=== PATIENT | female | born 1990 | race Caucasian/White ===

== ENCOUNTER 2016-09-07 23:24 | Emergency (ER) | payer OTHER ==
[2016-09-08] MEDS ORDERED: IBUPROFEN 600 MG TABLET PO STA (00:43)
[2016-09-08] MEDS ORDERED: PENICILLIN VK 250 MG TABLET PO STA (00:43)
[2016-09-08] MEDS ORDERED: HYDROcod/ACET 5/325 Prepack 6 PO STA (00:43)
[2016-09-08] MEDS ORDERED: AMOXICILLIN 250 MG CAPSULE PO STA (00:44)
[2016-09-08] MEDS ORDERED: HYDROcod/ACET 5/325 Prepack 6 PO ONE (00:54)
[2016-09-08] MEDS ORDERED: IBUPROFEN 600 MG TABLET PO ONE (00:54)
[2016-09-08] MEDS ORDERED: AZITHROMYCIN 250 MG TABLET PO ONE (00:54)
[2016-09-08] MEDS ORDERED: AMOXICILLIN 250 MG CAPSULE PO ONE (00:59)
== END 2016-09-08 01:32 | disposition home or self-care (01) ==
DX: J02.0 Streptococcal pharyngitis (principal)
CPT/HCPCS: 87430; 99283; A9270

== ENCOUNTER 2016-11-03 01:59 | Emergency (ER) | payer OTHER ==
[2016-11-03] MEDS ORDERED: METOCLOPRAMIDE 10 MG/2 ML VIAL IVP STA (02:10)
[2016-11-03] MEDS ORDERED: KETOROLAC 60 MG/2 ML VIAL IVP STA (02:10)
[2016-11-03] MEDS ORDERED: diphenhydrAMINE INJ 50 MG/ML VIAL IVP STA (02:10)
[2016-11-03] MEDS ORDERED: SODIUM CHLORIDE 0.9% 1,000 ML IV ONE (02:10)
[2016-11-03] MEDS ORDERED: METOCLOPRAMIDE 10 MG/2 ML VIAL IVP ONE (02:44)
[2016-11-03] MEDS ORDERED: diphenhydrAMINE INJ 50 MG/ML VIAL ONE (02:44)
[2016-11-03] MEDS ORDERED: KETOROLAC 30 MG/ML VIAL ONE (02:54)
[2016-11-03] MEDS ORDERED: MORPHINE 2 MG/ML SYRINGE IVP STA (03:11)
[2016-11-03] MEDS ORDERED: MORPHINE 2 MG/ML SYRINGE ONE (03:12)
== END 2016-11-03 04:19 | disposition home or self-care (01) ==
DX: R51 Headache (principal)

== ENCOUNTER 2017-02-04 06:53 | Day surgery (SDC) | payer OTHER ==
[~2017-02-04 06:53] MED LIST: ACETAMINOPHEN 1,000 MG/100 ML 100 ML IV ONE; GABAPENTIN 400 MG CAPSULE ONE; ceFAZolin 2 GM/50 ML 50 ML IV ONE
[2017-02-04] MEDS ORDERED: LACTATED RINGERS 1,000 ML IV ONE ×2 (07:03→10:11)
[2017-02-04 07:24] LABS: HCG UR QUAL NEGATIVE
[2017-02-04] MEDS ORDERED: fentaNYL 100 MCG/2 ML VIAL IVP ONE (09:13)
[2017-02-04] MEDS ORDERED: ONDANSETRON 4 MG/2 ML VIAL IVP ONE (09:13)
[2017-02-04] MEDS ORDERED: ROPIVACAINE 0.2% PF 20 ML AMPULE SUBQ ONE (09:13)
[2017-02-04] MEDS ORDERED: ROCURONIUM 50 MG/5 ML VIAL IVP ONE (09:13)
[2017-02-04] MEDS ORDERED: DEXAMETHASONE 4 MG/ML VIAL IVP ONE (09:13)
[2017-02-04] MEDS ORDERED: LIDOCAINE-MPF 2% 5 ML VIAL IM ONE (09:13)
[2017-02-04] MEDS ORDERED: PROPOFOL 200 MG/20 ML VIAL IVP ONE (09:13)
[2017-02-04] MEDS ORDERED: EPINEPHrine 1 MG/ML AMP IVP ONE ×2 (09:13→09:18)
[2017-02-04] MEDS ORDERED: MIDAZOLAM 2 MG/2 ML VIAL IVP ONE (09:13)
[2017-02-04] MEDS ORDERED: oxyCOD/ACETAMIN 5 MG/325 MG TABLET PO ONE (12:46)
[2017-02-04 14:26] VITALS: BP 118/77
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
== END 2017-02-04 06:54 | disposition home or self-care (01) ==
LOC: SDS 06:53
PROVIDERS: ATTEND Orthopaedic Surgery
PROC: 0MM14ZZ Reattachment of Right Shoulder Bursa and Ligament, Percutaneous Endoscopic Approach (ICD-10-PCS; principal; 2017-02-04 08:45)
PROC: 0RBJ4ZZ Excision of Right Shoulder Joint, Percutaneous Endoscopic Approach (ICD-10-PCS; 2017-02-04 08:45)
DX: S43.431A Superior glenoid labrum lesion of right shoulder, initial encounter (principal); M75.51 Bursitis of right shoulder; X50.0XXA Overexertion from strenuous movement or load, initial encounter; E66.9 Obesity, unspecified; Z68.32 Body mass index [BMI] 32.0-32.9, adult
CPT/HCPCS: 29807; 29822; 81025; A9270; C1713; J0131; J0690; J7120

== ENCOUNTER 2017-06-26 07:51 | Emergency (ER) | payer OTHER ==
[2017-06-26 08:14] LABS: BILIRUBIN,URINE NEGATIVE (NEGATIVE); GLUCOSE, URINE (UA) NEGATIVE (NEGATIVE); KETONES,URINE (UA) NEGATIVE (NEGATIVE); LEUKOCYTE ESTERASE, URINE TRACE (NEGATIVE); NITRITE,URINE NEGATIVE (NEGATIVE); OCCULT BLOOD,URINE NEGATIVE (NEGATIVE); PROTEIN,URINE NEGATIVE (NEGATIVE); UROBILINOGEN,URINE 0.2 (NORMAL) E.U./dL (NORMAL)
[2017-06-26 08:17] LABS: CLARITY,URINE CLEAR (CLEAR); HCG UR QUAL NEGATIVE
--- NOTE | 2017-06-26 08:23 | ED Physician Documentation ---
PD HPI ABD PAIN - Stated complaint Stated Complaint: ABD PX - Chief complaint Chief Complaint: Abd Pain - History obtained from History obtained from: Patient - History of Present Illness Timing - onset: How many months ago (2) Timing - duration: Months (2) Timing - details: Gradual onset, Still present, Waxing and waning Quality: Sharp, Pain Location: Suprapubic, LLQ Radiation: Left flank Improved by: Position Worsened by: Other (nothing) Associated symptoms: Nausea, Vomiting. No: Diarrhea, Constipation Similar symptoms before: Diagnosis (UTI) Recently seen: Clinic - Additional information Additional information: 26-year-old female is began to a developed some suprapubic pain worse on the left than the right and she has developed some pain into the left flank periodically as well. She has had symptoms for about 2 months and she has been into see her doctor and been diagnosed with urinary tract infection. She has been back to see the doctor and has been diagnosed two other times with urinary tract infections as well and she has been on 3 courses of antibiotic. Despite this she has continued to have symptoms and these are relatively unchanged. She describes a background pain that is continuous and sharp pain in the left lower quadrant radiating to the left flank that may last up to 45 minutes. The worst pain is a 7 the background pain as a 4. Review of Systems Constitutional: denies: Fever, Chills, Fatigue Eyes: denies: Decreased vision Ears: denies: Ear pain Nose: denies: Congestion Throat: denies: Sore throat Cardiac: denies: Chest pain / pressure, Palpitations Respiratory: denies: Dyspnea, Cough GI: reports: Abdominal Pain, Nausea, Vomiting. denies: Constipation, Diarrhea : denies: Dysuria, Frequency, Discharge Skin: denies: Rash Musculoskeletal: reports: Back pain. 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 - Present Medications Home Medications: Ambulatory Orders Medication Instructions Recorded Confirmed Gabapentin 1,200 mg PO DAILY 09/07/16 02/04/17 - Allergies Allergies/Adverse Reactions: Allergies Allergy/AdvReac Type Severity Reaction Status Date / Time primaquine Allergy Respiratory Verified 06/26/17 08:05 Sulfa (Sulfonamide Allergy Respiratory Verified 06/26/17 08:05 Antibiotics) adhesive tape AdvReac Unknown Verified 06/26/17 08:05 aspirin AdvReac Anxiety Verified 06/26/17 08:05 theragesic skin cream AdvReac Hives Uncoded 06/26/17 08:05 - Social History Does the pt smoke?: No Smoking Status: Never smoker Does the pt drink ETOH?: No Does the pt have substance abuse?: No - Immunizations Immunizations are current?: Yes - POLST Patient has POLST: No PD ED PE NORMAL - Vitals Vital signs reviewed: Yes (Hypertensive) - General General: Alert and oriented X 3, No acute distress, Well developed/nourished - HEENT HEENT: Atraumatic, PERRL, EOMI - Neck Neck: Supple, no meningeal sign - Cardiac Cardiac: RRR, No murmur - Respiratory Respiratory: No respiratory distress, Clear bilaterally - Abdomen Abdomen: Soft, Other (There is specific left lower quadrant tenderness to palpation without guarding or rebound tenderness there is no referred tenderness to the left lower quadrant there is no specific pain with bimanual palpation of the left kidney.) - Back Back: No CVA TTP, No spinal TTP - Derm Derm: Normal color, Warm and dry, No rash - Extremities Extremities: No deformity, No edema - Neuro Neuro: No motor deficit, No sensory deficit Eye Opening: Spontaneous Motor: Obeys Commands Verbal: Oriented GCS Score: 15 - Psych Psych: Normal mood, Normal affect Results - Vitals Vitals: Vital Signs - 24 hr 06/26/17 07:54 Temperature 36.7 C Heart Rate 76 Respiratory 18 Rate Blood Pressure 136/92 H O2 Saturation 99 Oxygen O2 Source Room air - Labs Labs: Laboratory Tests 06/26/17 06/26/17 06/26/17 07:56 08:48 08:48 WBC 7.1 RBC 4.59 Hgb 12.8 Hct 37.2 MCV 81.0 MCH 28.0 MCHC 34.5 RDW 13.5 Plt Count 180 MPV 8.4 Neut # 4.2 Lymph # 2.3 Bollinger # 0.6 Eos # 0.1 Baso # 0.0 Absolute Nucleated RBC 0.00 Nucleated RBC % 0.0 Sodium 141 Potassium 3.2 L Chloride 107 Carbon Dioxide 24 Anion Gap 10.0 BUN 11 Creatinine 1.0 Estimated GFR (MDRD) 68 L Glucose 92 Calcium 9.3 Total Bilirubin 0.5 AST 16 ALT 11 Alkaline Phosphatase 49 Total Protein 7.2 Albumin 4.3 Globulin 2.9 Albumin/Globulin Ratio 1.5 Lipase 24 Urine Color LT. YELLOW Urine Clarity CLEAR Urine pH 6.0 Ur Specific [place] <=1.005 Urine Protein NEGATIVE Urine Glucose (UA) NEGATIVE Urine Ketones NEGATIVE Urine Occult Blood NEGATIVE Urine Nitrite NEGATIVE Urine Bilirubin NEGATIVE Urine Urobilinogen 0.2 (NORMAL) Ur Leukocyte Esterase TRACE H Urine RBC 0-5 Urine WBC 4-5 Ur Squamous Epith Cells MOD Squamous H Urine Bacteria Moderate H Urine Trichomonas PRESENT H Ur Microscopic Review INDICATED Urine Culture Comments NOT INDICATED Urine HCG, Qual NEGATIVE - Rads (name of study) CT abdomen and pelvis with Radiology: Prelim report reviewed (Impression: 1. No convincing acute abdominal pelvic findings. No findings to explain left lower quadrant abdominal pain. 2. Chronic appearing mild compression fracture deformities at L3 and L4. Mild lower lumbar spinal degeneration. 3. Other findings as noted above.), EMP read indepedently, See rad report Procedures - Bedside sono Bedside sono by EMP: With use of bedside ultrasound the left kidney is imaged there is no evidence of hydronephrosis and the kidney is sonographically nontender. PD MEDICAL DECISION MAKING - ED course Complexity details: reviewed old records, reviewed results, re-evaluated patient , considered differential, d/w patient ED course: 26-year-old female with a two-month history of lower abdominal pain with a background pain and intermittent sharp pains has not had a change in her course with treatment of urinary tract infection. She has had imaging done previously with a pelvic ultrasound and today we will image further with CT of the abdomen pelvis with contrast. The CT scan does not reveal a specific reason for pain. The urine does show trich. The patient denies sexual activity and prefers single dose therapy. She had low K+ and was given Potassium bicarbonate and we will give her a single dose treatment with metronidazole 2 g. Departure - Departure Disposition: Home, Self Care Clinical Impression: Trichomonas infection Condition: Stable Instructions: ED Vaginitis Trichomonas Follow-Up: FAN GROVER [Primary Care Provider] - Comments: Today in the Emergency Department your blood pressure was elevated. This can happen from the stress of the visit itself, from a current illness or circumstance or from uncontrolled hypertension. If you take blood pressure medications take your usual mediations, have your blood pressure re-checked in an appropriate setting and follow up any elevation with your primary care doctor.
[2017-06-26] MEDS ORDERED: IOPAMIDOL-300 100 ML VIAL ONE (08:25)
[2017-06-26 08:32] LABS: BACTERIA,URINE Moderate /HPF (None Seen); RBC,URINE 0-5 /HPF (0-5); SQUAMOUS EPITHELIAL CELL,UR MOD Squamous (<= Few)
[2017-06-26 08:33] LABS: TRICHOMONAS,URINE PRESENT (None Seen)
[2017-06-26 08:56] LABS: BASOPHILS % (AUTO) 0.5 %; EOSINOPHILS # (AUTO) 0.1 10^3/uL (0.0-0.7); HGB - HEMOGLOBIN 12.8 g/dL (12.0-16.0); LYMPHOCYTES # (AUTO) 2.3 10^3/uL (1.5-3.5); LYMPHOCYTES % (AUTO) 32.1 %; MEAN CORPUSCULAR HGB CONC 34.5 g/dL (32.0-36.0); MEAN PLATELET VOLUME 8.4 fL (7.9-10.8); MONOCYTES # (AUTO) 0.6 10^3/uL (0.0-1.0); MONOCYTES % (AUTO) 7.7 %; NEUTROPHILS # (AUTO) 4.2 10^3/uL (1.5-6.6); NEUTROPHILS % (AUTO) 58.7 %; PLT - PLATELET COUNT 180 10^3/uL (130-450); RED BLOOD COUNT 4.59 10^6/uL (4.20-5.40); RED CELL DISTRIBUTION WIDTH 13.5 % (12.0-15.0); WHITE BLOOD COUNT 7.1 x10^3/uL (4.8-10.8)
[2017-06-26] MEDS ORDERED: IOPAMIDOL-300 100 ML VIAL IVP ONE (09:01)
[2017-06-26 09:06] LABS: ALBUMIN 4.3 g/dL (3.2-5.5); ALBUMIN/GLOBULIN RATIO 1.5 (1.0-2.2); BILIRUBIN,TOTAL 0.5 mg/dL (0.2-1.0); CALCIUM 9.3 mg/dL (8.5-10.3); TOTAL PROTEIN 7.2 g/dL (6.7-8.2)
[2017-06-26] MEDS ORDERED: POTASSIUM BICARB 25 MEQ TABLET PO STA (09:09)
--- NOTE | 2017-06-26 09:12 | CT Preliminary Report ---
Exam: CT ABDOMEN/PELVIS W/ IMPRESSION: 1. No convincing acute abdominopelvic findings. No findings to explain left lower quadrant abdominal pain. 2. Chronic appearing mild compression deformities at L3 and L4. Mild lower lumbar spinal degeneration . 3. Other findings as noted above. [facility] SITE ID: [id number]
--- NOTE | 2017-06-26 09:15 | CT Report ---
EXAM: CT ABDOMEN AND PELVIS EXAM DATE: 06/26/2017 09:02 AM. CLINICAL HISTORY: LLQ pain. COMPARISONS: None. TECHNIQUE: Routine helical CT imaging was performed through the abdomen and pelvis. IV contrast: 100M L OF ISOVUE 300. Enteric contrast: No. Reconstructions: Coronal and sagittal. In accordance with CT protocol optimization, one or more of the following dose reduction techniques w ere utilized for this exam: automated exposure control, adjustment of mA and/or KV based on patient s ize, or use of iterative reconstructive technique. FINDINGS: Lung Bases: Unremarkable. Liver: Normal. No masses. Gallbladder/Bile Ducts: Unremarkable. Spleen: Normal. Pancreas: Normal. Adrenal Glands: Normal. Kidneys: Hydronephrosis or solid renal mass. Left lower pole renal cortical hypodensity measuring up to 37 mm, suggestive of cyst. Peritoneal Cavity/Bowel: Normal. No free fluid, free air or adenopathy. No masses or acute inflammato ry process. The appendix is well visualized and normal. Pelvic Organs: Normal. The bladder and visualized pelvic organs are within normal limits. Vasculature: No aneurysms or other significant abnormality. Bones: Chronic appearing mild compression deformities of L3 and L4. Limbus vertebra at the inferior e ndplate of L4. Mild multilevel lumbar disk degeneration with vacuum disk phenomenon at L3-L4. Other: None. IMPRESSION: 1. No convincing acute abdominopelvic findings. No findings to explain left lower quadrant abdominal pain. 2. Chronic appearing mild compression deformities at L3 and L4. Mild lower lumbar spinal degeneration . 3. Other findings as noted above. [facility] Referring Provider Line: [phone] SITE ID: [id number]
[2017-06-26] MEDS ORDERED: POTASSIUM BICARB 25 MEQ TABLET PO ONE (09:28)
[2017-06-26] MEDS ORDERED: metroNIDAZOLE 250 MG TABLET PO STA (09:46)
[2017-06-26] MEDS ORDERED: metroNIDAZOLE 250 MG TABLET PO ONE (10:21)
[2017-06-26 13:02] VITALS: BP 123/69
[2017-07-08] MEDS ORDERED: HYDROmorphone 1 MG/ML SYRINGE ONE (05:34)
== END 2017-06-26 10:43 | disposition home or self-care (01) ==
LOC: ED 07:51
DX: A59.00 Urogenital trichomoniasis, unspecified (principal); R03.0 Elevated blood-pressure reading, without diagnosis of hypertension
CPT/HCPCS: 36415; 51798; 74177; 80053; 81001; 81025; 83690; 85025; 99283; A9270; Q9967; 81003; 87086